=== PATIENT | female | born 2000 | race Caucasian/White ===

== ENCOUNTER → 2019-12-08 | Outpatient (CLI) | payer BC | LOC: ZCOL.LAB 17:03 | DX: Z20.828 Contact with and (suspected) exposure to other viral communicable diseases (principal) ==

== ENCOUNTER 2020-06-30 22:19 | Emergency (ER) | payer BC ==
[~2020-06-30] VITALS: Ht 162.6 cm; Wt 52.3 kg
[2020-06-30 23:04] VITALS: TEMP 99.2
[2020-06-30] MEDS ORDERED: CLEOCIN HC150 MG/CAP PO (23:45)
[2020-06-30] MEDS ORDERED: BACTROBAN15 GM TOP (23:46)
[2020-07-01] VITALS: BP 129/77; PULSE 81
== END 2020-07-01 | disposition home or self-care (01) ==
LOC: COL.ER
DX: J32.9 Chronic sinusitis, unspecified (principal); Z88.1 Allergy status to other antibiotic agents

== ENCOUNTER 2021-08-26 10:51 | Emergency (ER) | payer BC ==
[~2021-08-26] VITALS: Ht 162.6 cm; Wt 52.3 kg
[~2021-08-26 10:51] MED LIST: BACTROBAN15 GM TOP; CLEOCIN HC150 MG/CAP PO
[2021-08-26 10:59] VITALS: BP 144/79; PULSE 62; TEMP 97.6
[2021-08-26] MEDS ORDERED: RITALIN LA20 MG (11:01)
== END 2021-08-26 11:35 | disposition home or self-care (01) ==
LOC: COL.ER 10:51
DX: S60.221A Contusion of right hand, initial encounter (principal); Z28.311 Partially vaccinated for COVID-19; W22.8XXA Striking against or struck by other objects, initial encounter